=== PATIENT | male | born 1970 | race Two or more races ===

== ENCOUNTER → 2017-05-23 | Emergency (ER) | payer OTHER ==
[~2017-05-23] VITALS: Ht 177.8 cm; Wt 86.2 kg
[~2017-05-23] MED LIST: JANUMET 50-1,01 EACH; KETO10TA2 PO; LANTUS SOL100 UNIT/1; NORFLEX100MG PO; VASOTEC5 MG
== END | disposition home or self-care (01) ==
LOC: ER 10:26
DX: R07.89 Other chest pain (principal)

== ENCOUNTER 2017-09-02 21:52 | Emergency (ER) | payer OTHER ==
[~2017-09-02] VITALS: Ht 177.8 cm; Wt 86.2 kg
[2017-09-03] MEDS ORDERED: KETO10TA2 PO (02:47)
[2017-09-03] MEDS ORDERED: BENADRYL25 MG PO (02:47)
== END 2017-09-03 02:56 | disposition home or self-care (01) ==
LOC: ER 21:52
DX: T78.1XXA Other adverse food reactions, not elsewhere classified, initial encounter (principal); R53.81 Other malaise; E11.9 Type 2 diabetes mellitus without complications

== ENCOUNTER 2018-07-15 14:45 | Outpatient (CLI) | payer OTHER ==
[~2018-07-15 14:45] MED LIST changes: +BENADRYL25 MG PO
== END 2018-07-15 14:53 | disposition home or self-care (01) ==
LOC: LAB 14:45
DX: L02.31 Cutaneous abscess of buttock (principal)

== ENCOUNTER 2018-12-30 09:04 | Emergency (ER) | payer OTHER ==
[~2018-12-30] VITALS: Ht 177.8 cm; Wt 88.5 kg
[2018-12-30] MEDS ORDERED: TUGEO (09:35)
[2018-12-30] MEDS ORDERED: LIPITOR40 MG PO (09:35)
[2018-12-30] MEDS ORDERED: PLAVIX75 MG PO (09:35)
[2018-12-30] MEDS ORDERED: ASPIR 8181 MG PO (09:36)
[2018-12-30] MEDS ORDERED: ULTRACET PO (11:07)
[2018-12-30] MEDS ORDERED: DOXYCYCLINE HY100 M2 PO (11:07)
== END 2018-12-30 12:32 | disposition home or self-care (01) ==
LOC: ER 09:04
DX: L02.212 Cutaneous abscess of back [any part, except buttock and flank] (principal)

== ENCOUNTER 2019-03-01 17:29 | Emergency (ER) | payer OTHER ==
[~2019-03-01] VITALS: Ht 177.8 cm; Wt 85.3 kg
[~2019-03-01 17:29] MED LIST changes: +ASPIR 8181 MG PO; +DOXYCYCLINE HY100 M2 PO; +LIPITOR40 MG PO; +PLAVIX75 MG PO; +TUGEO; +ULTRACET PO
== END 2019-03-02 09:36 | disposition home or self-care (01) ==
LOC: ER 17:29
DX: R53.1 Weakness (principal); R06.02 Shortness of breath; E11.65 Type 2 diabetes mellitus with hyperglycemia; J40 Bronchitis, not specified as acute or chronic

== ENCOUNTER 2024-10-07 08:12 | Emergency (ER) | payer OTHER ==
[~2024-10-07] VITALS: Ht 177.8 cm; Wt 86.2 kg
[2024-10-07] MEDS ORDERED: IRBESARTAN150 MG PO (08:37)
[2024-10-07] MEDS ORDERED: TOUJEO SOL300 UNIT/1 SQ (08:38)
[2024-10-07] MEDS ORDERED: JARDIANCE10 MG PO (08:38)
[2024-10-07] MEDS ORDERED: HUMALOG KW100 UNIT/1 SQ (08:38)
[2024-10-07] MEDS ORDERED: KETOROLAC TROMETHAMINE 60 MG VIAL IM ONE (12:00)
[2024-10-07] MEDS ORDERED: DEXAMETHASONE SODIUM PHOSPHATE 4 MG/ML VIAL IM ONE (12:00)
[2024-10-07] MEDS ORDERED: ORPHENADRINE CITRATE 30 MG/ML AMPUL IM ONE (12:00)
[2024-10-07] MEDS ORDERED: IBUPROFEN800 MG PO (12:15)
[2024-10-07] MEDS ORDERED: NORFLEX100MG PO (12:18)
== END 2024-10-07 12:29 | disposition home or self-care (01) ==
LOC: ER 08:19
DX: R07.89 Other chest pain (principal); M25.511 Pain in right shoulder; I10 Essential (primary) hypertension; E11.9 Type 2 diabetes mellitus without complications; Z79.84 Long term (current) use of oral hypoglycemic drugs